=== PATIENT | male | born 1985 | race Caucasian/White ===

== ENCOUNTER 2018-06-13 09:44 | Day surgery (SDC) | payer MEDICARE ==
--- NOTE | 2018-06-13 09:20 | HP ---
DATE OF SURGERY: 06/13/2018 HISTORY OF PRESENT ILLNESS: The patient is a 33 year-old with epigastric ventral hernia likely incarcerated with increasing symptoms, some discomfort. He desires repair. PAST MEDICAL HISTORY: He denies any chronic illnesses. PAST SURGICAL HISTORY: L-2 back fusion in the past. Right shoulder surgery. Left knee ACL and MCL repair in the past. MEDICATIONS: None. ALLERGIES: PENICILLIN. FAMILY HISTORY: Negative. SOCIAL HISTORY: Quarter pack per day smoker. He does drink some beer, denies alcohol abuse. REVIEW OF SYSTEMS: Twelve systems reviewed. No chest pain or palpitations other systems negative or noncontributory as above and per preadmission questionnaire. PHYSICAL EXAMINATION: GENERAL: No acute distress. HEENT: Sclerae nonicteric. NECK: No JVD. CHEST: Equal excursion, nonlabored breathing. CVS: Regular rate and rhythm. ABDOMEN: Soft. No peritoneal signs. He does have a lower epigastrium ventral hernia with likely peritoneal fat or omentum consistent with incarcerated epigastric ventral hernia. EXTREMITIES: No edema. NEURO: Alert, oriented, moving extremities symmetrically. No gross motor deficits noted. IMPRESSION: Enlarging symptomatic incarcerated epigastric ventral hernia. I feel he would benefit from repair likely with mesh. Risks and benefits explained in detail but not limited to bleeding or infection, risk of hematoma or seroma formation, risk of ingrown hair or suture reaction, risk if the mesh became infected likely would need to be removed, general risk of aches, pains, burning or numbness possible term or chronic in nature, overall risk of hernia recurrence, small risk of adhesion or scar formation or obstruction, very remote risk of mesh fracture or failure possibly creating issue with the bowel or other viscera, other structures possibly requiring other procedures, ongoing morbidity, general risk of hernia recurrence, general risk of anesthesia, deep venous thrombosis, pulmonary embolism, pneumonia but not limited to. He understands and agrees to the planned procedure, will proceed with repair of incarcerated epigastric ventral hernia with mesh as an outpatient.
[~2018-06-13 09:44] MED LIST: CLINDAMYCIN-D5W 900 MG/50 ML*** 900 MG/50 ML BAG IV SCH; Lactated Ringers 1,000 ML IV ONE; Lactated Ringers 1,000 ML IV SCH; Sensorcaine 0.25% 10 ML ONE
[2018-06-13] MEDS ORDERED: SUBLIMAZE 250 MCG/5 ML IJ ONE (09:45)
[2018-06-13] MEDS ORDERED: Zemuron 100 MG/10 ML IJ ONE (09:45)
[2018-06-13] MEDS ORDERED: BRIDION 200MG/2ML IV ONE (09:45)
[2018-06-13] MEDS ORDERED: TORAdol 30 mg Injection IJ ONE (09:45)
[2018-06-13] MEDS ORDERED: DIPRIVAN 200 MG/20 ML IV ONE (09:45)
[2018-06-13] MEDS ORDERED: Versed 2 MG/2 ML Injection IV ONE (09:45)
[2018-06-13] MEDS ORDERED: Zofran 4 MG/2 ML VIAL IV ONE (09:45)
[2018-06-13] MEDS ORDERED: DEMEROL 50 MG ONE (12:36)
[2018-06-13] MEDS ORDERED: DILAUDID 2 MG INJECTION ONE (12:51)
[2018-06-13 13:58] VITALS: BP 119/68; PULSE 76; O2SAT 92
--- NOTE | 2018-06-13 15:15 | OP ---
SURGERY DATE/TIME: 06/13/2018 1125 PREOPERATIVE DIAGNOSIS: Incarcerated epigastric ventral hernia. POSTOPERATIVE DIAGNOSES: 1) Incarcerated epigastric ventral hernia. 2) Incarcerated umbilical area hernia at separate site. PROCEDURES: 1) Repair of incarcerated ventral epigastric hernia with mesh. 2) Repair of separate site incarcerated umbilical hernia with separate piece of mesh. SURGEON: Dr. Byron Keith. COSTING ANALYST: Caron Bahena, Medical Student III. ANESTHESIA: General. ESTIMATED BLOOD LOSS: Minimal. INDICATIONS: As noted above. Risks and benefits explained in detail and not limited to and consent obtained. DESCRIPTION OF PROCEDURE AND FINDINGS: The patient is taken to the operating room. General anesthesia induced. Site had been confirmed with the patient in preoperative holding area. Taken to the operating room. General anesthesia induced. After official time out and no disagreement with planned procedure, a transverse incision made over the epigastric area. Dissection carried down. It was noted that the patient did have incarcerated epigastric ventral hernia with some preperitoneal and omental fat this was carefully dissected free and reduced back down in the abdomen. It was also noted that the patient had a separate site umbilical area of incarcerated hernia with some incarcerated preperitoneal fat. This was too far away to repair en bloc as one hernia. Therefore the incarcerated umbilical hernia was carefully freed from the other surrounding tissue, took down to the level of the fascia and reduced back down in the abdomen. It was felt both of these need repaired but they are not close enough to repair as one hernia so it was felt it should be repaired separately with a separate piece of mesh. The umbilical area was repaired once the fascia is cleared posteriorly underneath the defect and it was then repaired with 4.3 cm Ventralex mesh carefully inserted coated side down secured circumferentially around with interrupted centimeter apart with 0 Prolene in tension free manner, attenuated fascia over top and then closed with interrupted 0 PDS. Isolating the mesh away from the rest of the wound. Attention is then turned to the separate side anterior epigastric ventral hernia again this is several centimeters superior to the umbilical defect, this had been reduced back down in the abdomen. It was felt this was the best repair with this 1 x 4 piece of mesh cut to appropriate dimensions and secured with interrupted 0 Prolene in a tension free manner, some interrupted 0 PDS was used to close attenuated fascia over the top isolating mesh away from the rest of the defect. Wound irrigated out. Good hemostasis noted. 0.25% Marcaine local injected along the edge of the fascia along the skin incision. The umbilical tissue had been tacked back down to the level of the fascia keeping umbilicus inverted. Copious amount of irrigation irrigating until clear. Subcu closed with 3-0 Vicryl, skin closed with 4-0 Vicryl, Steri-Strips, sterile dressing applied. Patient was given sterile dressing and abdominal binder. There were no immediate complications.
== END 2018-06-13 13:55 | disposition home or self-care (01) ==
LOC: SDC 09:44
PROVIDERS: ATTEND Surgery
DX: K43.9 Ventral hernia without obstruction or gangrene (principal); K42.9 Umbilical hernia without obstruction or gangrene; Z72.0 Tobacco use
CPT/HCPCS: 00832; 49561; 49568; 49587; 94250; C1781; J1170; J1885; J2175; J2250; J2405; J2704; J3010; L0625